=== PATIENT | female | born 1950 | race Caucasian/White ===

== ENCOUNTER → 2016-11-15 | Outpatient (CLI) | payer OTHER ==
--- NOTE | 2016-11-15 14:59 | CT ---
EXAMINATION TYPE: CT chest wo con DATE OF EXAM: 11/15/2016 2:16 PM COMPARISON: 10/31/2015 HISTORY: Chest mass. COPD. CT DLP: 194.[address] of the chest was performed with lung and mediastinal window settings submitted. The la ck of contrast limits evaluation of the vascular, mediastinal and parenchymal structures including th e upper abdomen. LUNGS: Basilar compressive atelectasis or parenchymal scar. Chronic elevation right hemidiaphragm. 4 mm lingular nodule is unchanged. MEDIASTINUM/JAMES: Thoracic aorta is of normal caliber with limited evaluation given lack of contras t. The heart is not enlarged. Right paratracheal soft tissue appears to be essentially unchanged in size and measures 1.5 cm short axis versus 1.4 cm previously. No lymph nodes greater than 1cm. UPPER ABDOMEN: No significant abnormality is seen. OTHER: No significant other abnormality. IMPRESSION: 1. Stable 4 mm lingular nodule. 2. Stable right paratracheal soft tissue may reflect adenopathy. 3. Basilar parenchymal scarring versus atelectasis.
== END | disposition home or self-care (01) ==
LOC: RADCTMAIN 13:30
PROVIDERS: ATTEND Family Medicine
DX: R91.8 Other nonspecific abnormal finding of lung field (principal)
CPT/HCPCS: 71250

== ENCOUNTER → 2016-12-12 | Outpatient (CLI) | payer OTHER ==
--- NOTE | 2016-12-12 15:07 | XR ---
Second digit right foot HISTORY: Trauma and pain 3 views of the second digit of the right foot The digit is flexed which may limit sensitivity, there is marked soft tissue swelling present. Commin uted tuft fracture is present. There may be a small fracture involving the medial aspect of the proxi mal portion of the distal phalanx involving the distal interphalangeal joint. IMPRESSION: Second digit comminuted fracture
== END | disposition home or self-care (01) ==
LOC: RADXRMAIN 14:31
PROVIDERS: ATTEND Family Medicine
DX: S92.501A Displaced unspecified fracture of right lesser toe(s), initial encounter for closed fracture (principal)

== ENCOUNTER → 2017-01-24 | Outpatient (CLI) | payer OTHER ==
--- NOTE | 2017-01-28 13:03 | MM ---
Reason for exam: screening (asymptomatic). Last mammogram was performed 1 year and 5 months ago. History: Patient is postmenopausal. Excisional biopsy of both breasts, 1993. Physical Findings: A clinical breast exam by your physician is recommended on an annual basis and results should be correlated with mammographic findings. MG Screening Mammo w CAD Bilateral CC and MLO view(s) were taken. Prior study comparison: August 17, 2015, bilateral MG screening mammo w CAD. June 07, 2014, bilateral MG screening mammo w CAD. There are scattered fibroglandular densities. Finding: There is a 3.7 mm highn round mass located 7 cm from the nipple in the upper outer quadrant of the right breast. New finding since August 17, 2015 and June 07, 2014. ASSESSMENT: Incomplete: need additional imaging evaluation, BI-RAD 0 RECOMMENDATION: Special view mammogram of the right breast. [facility] will attempt to contact patient to return for supplemental views.
== END | disposition home or self-care (01) ==
LOC: RADMAMWWP 09:50
PROVIDERS: ATTEND Family Medicine
DX: Z12.31 Encounter for screening mammogram for malignant neoplasm of breast (principal)

== ENCOUNTER → 2017-01-30 | Outpatient (CLI) | payer OTHER ==
--- NOTE | 2017-01-30 10:49 | MM ---
Reason for exam: additional evaluation requested from abnormal screening. Last mammogram was performed less than 1 month ago. History: Patient is postmenopausal. Excisional biopsy of both breasts, 1993. Physical Findings: Nurse did not find any significant physical abnormalities on exam. MG Work Up Mamm w CAD RT Spot compression MLO, spot compression CC, and ML view(s) were taken of the right breast. Prior study comparison: January 24, 2017, bilateral MG screening mammo w CAD. August 17, 2015, bilateral MG screening mammo w CAD. June 07, 2014, bilateral MG screening mammo w CAD. There are scattered fibroglandular densities. New 4mm mass persists at 8 o'clock. ASSESSMENT: Incomplete: need additional imaging evaluation, BI-RAD 0 RECOMMENDATION: Ultrasound of the right breast. (8 o'clock)
--- NOTE | 2017-01-30 10:51 | USB ---
Reason for exam: additional evaluation requested from abnormal screening. History: Patient is postmenopausal. Excisional biopsy of both breasts, 1993. US Breast Workup Limited RT Right breast ultrasound demonstrates a 3 x 3 x 3mm oval lesion too small to characterize at 8 o'clock, but appear cystic and seems to correlate with the mammographic finding. 6 month follow up mammogram recommended. These results were verbally communicated with the patient and result sheet given to the patient on 01/30/17. ASSESSMENT: Probably benign, BI-RAD 3 RECOMMENDATION: Follow-up diagnostic mammogram of the right breast in 6 months.
== END | disposition home or self-care (01) ==
LOC: RADMAMWWP 08:53
PROVIDERS: ATTEND Family Medicine
DX: R92.8 Other abnormal and inconclusive findings on diagnostic imaging of breast (principal); Z80.3 Family history of malignant neoplasm of breast
CPT/HCPCS: 76642; G0206

== ENCOUNTER → 2017-05-20 | Outpatient (CLI) | payer OTHER ==
--- NOTE | 2017-05-20 16:19 | XR ---
EXAMINATION TYPE: XR chest 2V DATE OF EXAM: 05/20/2017 COMPARISON: Chest x-ray 06/07/2014 HISTORY: Edema, R 60.9, congestive heart failure, I 50.9 TECHNIQUE: Frontal and lateral views of the chest are obtained. FINDINGS: Increased AP diameter of the chest could be indicative of underlying COPD. Spinal curvatur e is again noted. Strand-like densities likely reflect scarring at the lung bases. No evident pneumot horax, pneumonia, or pleural effusion. Cardiomediastinal silhouette, pulmonary vascularity and joseph a re stable. IMPRESSION: No acute cardiopulmonary process.
--- NOTE | 2017-05-21 10:05 | ECHOF ---
Referral Reason:R60.9 Edema, CHF I50.9 MEASUREMENTS -------- HEIGHT: 160.0 cm WEIGHT: 77.1 kg BP: 153/68 IVSd: 1.4 cm (0.6 - 1.1) LVIDd: 3.9 cm (3.9 - 5.3) LVPWd: 1.4 cm (0.6 - 1.1) IVSs: 1.7 cm LVIDs: 1.7 cm LVPWs: 1.6 cm LAESV Index (A-L): 17.93 ml/m Ao Diam: 3.4 cm (2.0 - 3.7) AV Cusp: 2.3 cm (1.5 - 2.6) LA Diam: 3.6 cm (2.7 - 3.8) MV EXCURSION: 22.560 mm (> 18.000) MV EF SLOPE: 131 mm/s (70 - 150) EPSS: 0.6 cm MV E Jared: 0.55 m/s MV DecT: 266 ms MV A Jared: 0.62 m/s MV E/A Ratio: 0.88 RAP: 5.00 mmHg RVSP: 30.26 mmHg FINDINGS -------- Sinus rhythm. This was a technically adequate study. There is moderate concentric left ventricular hypertrophy. Overall left ventricular systolic function is normal with, an EF between 55 - 60 %. The right ventricle is normal in size and function. The left atrium is normal in size. The right atrium is normal in size. The aortic valve is trileaflet, and appears structurally normal. No aortic stenosis or regurgitation. The mitral valve leaflets are mildly thickened. There is trace mitral regurgitation. Mild tricuspid regurgitation present. The right ventricular systolic pressure, as measured by Doppler, is 30.26mmHg. Pulmonic valve appears structurally normal. The aortic root size is normal. There is a trivial pericardial effusion present. CONCLUSIONS -------- 1. Sinus rhythm. 2. There is trace mitral regurgitation. 3. Mild tricuspid regurgitation present. 4. The right ventricular systolic pressure, as measured by Doppler, is 30.26mmHg. 5. Pulmonic valve appears structurally normal. 6. The aortic root size is normal. 7. There is a trivial pericardial effusion present. 8. This was a technically adequate study. 9. There is moderate concentric left ventricular hypertrophy. 10. Overall left ventricular systolic function is normal with, an EF between 55 - 60 %. 11. The right ventricle is normal in size and function. 12. The left atrium is normal in size. 13. The right atrium is normal in size. 14. The aortic valve is trileaflet, and appears structurally normal. No aortic stenosis or regurgitation. 15. The mitral valve leaflets are mildly thickened. CREDENTIALER: Shwetha Rivers RDCS
== END | disposition home or self-care (01) ==
LOC: RADECHMAIN 14:55
PROVIDERS: ATTEND Family Medicine
DX: I07.1 Rheumatic tricuspid insufficiency (principal); I05.9 Rheumatic mitral valve disease, unspecified; I31.3 Pericardial effusion (noninflammatory); R60.9 Edema, unspecified
CPT/HCPCS: 71020; 93306

== ENCOUNTER → 2017-07-11 | Outpatient (CLI) | payer OTHER ==
--- NOTE | 2017-07-11 10:10 | CT ---
EXAMINATION TYPE: CT pelvis wo con DATE OF EXAM: 07/11/2017 COMPARISON: NONE HISTORY: Lower extremity swelling CT DLP: 316.5 mGycm Automated exposure control for dose reduction was used. FINDINGS: Small fat-containing umbilical hernia is noted. Visualized portions of the kidneys are unremarkable. There are changes of prior hysterectomy. No evidence for ovarian or adnexal mass. Visualized gastroin testinal tract is of normal caliber. No evidence for pelvic or inguinal adenopathy. No bony destructi ve process seen. Degenerative changes lumbar spine. IMPRESSION: NO SIGNIFICANT ABNORMALITY TO ACCOUNT FOR THE PATIENT'S SYMPTOMS.
== END | disposition home or self-care (01) ==
LOC: RADCTMAIN 09:17
PROVIDERS: ATTEND Family Medicine
DX: R60.9 Edema, unspecified (principal)
CPT/HCPCS: 72192; 93923

== ENCOUNTER → 2017-08-02 | Outpatient (CLI) | payer OTHER ==
--- NOTE | 2017-08-05 07:30 | MM ---
Reason for exam: follow-up at short interval from prior study. Last mammogram was performed 6 months ago. History: Patient is postmenopausal and history of other cancer. Benign excisional biopsy of both breasts, 1993. Took hormonal contraceptives beginning at age 20. Physical Findings: Nurse did not find any significant physical abnormalities on exam. MG 3D Diag Mammo W/Cad RT CC, MLO, and ML view(s) were taken of the right breast. Prior study comparison: January 30, 2017, right breast MG work up mamm w CAD RT. January 24, 2017, bilateral MG screening mammo w CAD. The breast tissue is heterogeneously dense. This may lower the sensitivity of mammography. Small nodular density upper outer quadrant in the right breast has decreased in size. No suspicious nodules. These results were verbally communicated with the patient and result sheet given to the patient on 08/02/17. ASSESSMENT: Benign, BI-RAD 2 RECOMMENDATION: Return to routine screening mammogram schedule for both breasts. Back on schedule.
== END | disposition home or self-care (01) ==
LOC: RADMAMWWP 12:36
PROVIDERS: ATTEND Family Medicine
DX: R92.2 Inconclusive mammogram (principal)
CPT/HCPCS: G0206; G0279

== ENCOUNTER → 2017-09-10 | Outpatient (CLI) | payer OTHER | END | disposition home or self-care (01) | LOC: LABWHC1 11:54 | PROVIDERS: ATTEND Family Medicine | DX: R53.83 Other fatigue (principal); I10 Essential (primary) hypertension | CPT/HCPCS: 36415; 83880; 85379 ==

== ENCOUNTER → 2018-08-29 | Outpatient (CLI) | payer MEDICARE, OTHER ==
[2018-08-29 10:44] LABS: Blood Urea Nitrogen 17 mg/dL (7-17)
--- NOTE | 2018-08-29 13:26 | CT ---
EXAMINATION TYPE: CT chest wo/w con DATE OF EXAM: 08/29/2018 COMPARISON: 11/15/2016 and 10/31/2015 HISTORY: Follow-up for pulmonary nodule. CT DLP: 933.6 mGycm. Automated Exposure Control for Dose Reduction was Utilized. TECHNIQUE: CT scan of the thorax is performed prior to and following without and with IV Contrast, p atient injected with 100 mL of Isovue 300. FINDINGS: LUNGS: There is right hemidiaphragm elevation, chronic. 4 mm solid lingular pulmonary nodule remains unchanged on image 33 dating back to 10/31/2015 demonstrating nearly 3 years of stability, likely benig n. Minimal enhancing right basal atelectasis is seen best on postcontrast coronal imaging No new pulm onary nodule is seen. Again there is bibasilar atelectasis and pleural parenchymal scarring. There i s no pleural effusion or pneumothorax seen. The tracheobronchial tree is patent. MEDIASTINUM: There is redemonstration of a right paratracheal/pretracheal mildly enlarged lymph node that is decrease in size now measuring 1.1 cm in short axis and previously measuring 1.5 cm. No per icardial effusion is seen. Mild atherosclerosis of the thoracic aorta is noted. Of the ascending tho racic aorta is within normal limits measuring 3.3 cm. OTHER: Mild to moderate multilevel degenerative changes of the spine are seen with mild retrolisthesi s of a lower thoracic vertebral body. There is an exaggerated thoracic kyphosis. IMPRESSION: 1. 4 mm lingular nodule is stable dating back to 10/31/2015, highly likely benign. 2. Decreasing size of the mildly enlarged right paratracheal solitary mediastinal lymph node. 3. Minimal right basilar subsegmental atelectasis.
== END ==
LOC: RADCTMAIN 10:05
PROVIDERS: ATTEND Family Medicine
DX: R91.1 Solitary pulmonary nodule (principal); J98.11 Atelectasis
CPT/HCPCS: 82565; 84520; 71270; 36415; Q9967